=== PATIENT | male | born 1965 | race Caucasian/White ===

== ENCOUNTER 2021-01-15 06:51 | Emergency (ER) | payer OTHER ==
[~2021-01-15] VITALS: Ht 182 cm; Wt 76.2 kg
[2021-01-15 07:16] VITALS: BP 130/79
--- NOTE | 2021-01-15 07:34 | ED Upper Extremity ---
General Chief Complaint: Upper Extremity Stated Complaint: LEFT ARM PAINFULL & CAN'T MAKE A FIST Nursing Triage Note: pt states left wrist pain since last night states finger tingle, unable to make a fist. Nursing Sepsis Screen: No Definite Risk Source: patient Exam Limitations: no limitations History of Present Illness Date Seen by Provider: Jan 15, 2021 Time Seen by Provider: 07:20 Initial Comments Patient is a 55-year-old male who presents to the emergency department today with a chief complaint of left arm pain for the last 24 hours. Patient reports that he has a history of "rheumatoid arthritis". He states that he is taking multiple doses of Aleve and ibuprofen throughout the day in order to try and alleviate his symptoms. Patient states his pain is minimal at this time. He states that he is having pain particularly with active range of motion at the shoulder and with extension of the left wrist. Patient states he is right-hand dominant. He does not report any other illnesses such as fevers, nausea vomiting, chest pain shortness of breath, GI or symptoms. He has had "cold symptoms" over the course of the last couple weeks. No discrete injuries to the left upper extremity. 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 He states that he cannot run the bulldozer today secondary to the discomfort in his wrist. 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 All other review of systems reviewed and negative except as stated. Onset: yesterday Severity: moderate Pain/Injury Location: left shoulder, left wrist Method of Injury: other Modifying Factors: Worse With Movement; Improves With Pain Medication Allergies and Home Medications Home Medications Prednisone 20 Mg Tab, 40 MG PO DAILY Prescribed by: NING HUMPHREY on 01/15/21 0741 Patient Home Medication List Home Medication List Reviewed: Yes Review of Systems Constitutional: see HPI EENTM: no symptoms reported Respiratory: no symptoms reported Cardiovascular: no symptoms reported Gastrointestinal: no symptoms reported Genitourinary: no symptoms reported Musculoskeletal: joint pain (Left shoulder left wrist left elbow) Skin: no symptoms reported All Other Systems Reviewed Negative Unless Noted: Yes Past [id number] Hx Patient Social History Alcohol Use: Denies Use Smoking Status: Current Everyday Smoker Type Used: Cigarettes 2nd Hand Smoke Exposure: Yes Recent Infectious Disease Expo: No Physical Exam Vital Signs Vital Signs - First Documented 01/15/21 07:16 Temp 36.9 Pulse 68 Resp 18 B/P (MAP) 130/79 (96) Pulse Ox 96 O2 Delivery Room Air Capillary Refill : Less Than 3 Seconds Height, Weight, BMI Height: '" Weight: lbs. oz. kg; 23.00 BMI Method: General Appearance: WD/WN, no apparent distress HEENT: PERRL/EOMI Neck: full range of motion Cardiovascular: regular rate, rhythm Respiratory: normal breath sounds, no respiratory distress, no accessory muscle use Gastrointestinal: non tender, soft Shoulder: normal inspection, non-tender, no evidence of injury; No bone tenderness, No deformity, No pain Elbow/Forearm: normal inspection, non-tender, no evidence of injury, normal ROM, Left Wrist: Yes normal inspection, Yes non-tender, Yes no evidence of injury, Yes limited ROM (Dorsiflexion) Hand: normal inspection, non-tender, no evidence of injury, normal ROM Neurologic/Psychiatric: alert, normal mood/affect, oriented x 3 Skin: normal color, warm/dry Progress/Results/Core Measures Results/Orders Vital Signs/I&O 01/15/21 07:16 Temp 36.9 Pulse 68 Resp 18 B/P (MAP) 130/79 (96) Pulse Ox 96 O2 Delivery Room Air Blood Pressure Mean: 96 Departure Impression Primary Impression: Arthritis pain of wrist Disposition: 01 HOME, SELF-CARE Condition: Stable Departure-Patient Inst. Decision time for Depature: 07:32 Referrals: NO,LOCAL PHYSICIAN (PCP/Family) Primary Care Physician Patient Instructions: Osteoarthritis (DC) Add. Discharge Instructions: Take Alleve 2 pills twice a day for pain always with food. Do not take additional ibuprofen. Take the steroids over the next 5 days for inflammation and pain. Take an over the counter acid chimney supervisor brick - such as pepcid or prilosec to protect your stomach. Take this daily while on Alleve and steroids. Use an halle wrap as a compressive dressing as needed over your left wrist to help with discomfort. Follow up with a primary care physician for further treatment of arthritis pain and discomfort. Scripts Prednisone (Prednisone) 20 Mg Tab 40 MG PO DAILY, #6 TAB 0 Refills Prov: NING HUMPHREY MD 01/15/21 Work/School Note: Work Release Form Date Seen in the Emergency Department: Jan 15, 2021 Return to Work: Jan 18, 2021 NING HUMPHREY MD Jan 15, 2021 07:34
[2021-01-15] MEDS ORDERED: PRD20T PO (07:35)
== END 2021-01-15 07:49 | disposition home or self-care (01) ==
LOC: ER 06:58
DX: M25.532 Pain in left wrist (principal); F17.210 Nicotine dependence, cigarettes, uncomplicated; Z79.52 Long term (current) use of systemic steroids
CPT/HCPCS: 99282